=== PATIENT | male | born 1980 | race American Indian/Alaskan Native ===

== ENCOUNTER 2021-08-10 11:19 | Observation (INO) | payer SELFPAY ==
[2021-08-10] MEDS ORDERED: SODIUM CHLORIDE 0.9% 1000 ML 1,000 ML IV ONE (11:48)
[2021-08-10] MEDS ORDERED: ONDANSETRON 4 MG/2 ML INJ IV ONE (11:48)
[2021-08-10] MEDS ORDERED: MORPHINE 4 MG/1 ML INJ IV ONE (11:48)
--- NOTE | 2021-08-10 12:01 | Emergency Department Report ---
ED Abdominal Pain HPI - General Chief Complaint: Abdominal Pain Stated Complaint: ABD PAIN Time Seen by Provider: 08/10/21 11:43 Source: patient Mode of arrival: Ambulatory Limitations: No Limitations - History of Present Illness Initial Comments: Patient presents secondary to abdominal pain. He started having abdominal pain yesterday. It was periumbilical in nature. He described as an aching pain. It seemed to be constant, but it did vary in intensity. Throughout the night and into this morning, the pain migrated to the right lower abdomen. He states that the pain is still persistent. It is still aching. He has no flank pain. There has been nausea but no vomiting. He has had no fever that he can tell. He has had no dysuria frequency. There is no history of recent travel or trauma. Never had pain like this before. He has never had surgery on his abdomen. - Related Data Allergies Allergy/AdvReac Type Severity Reaction Status Date / Time No Known Allergies Allergy Verified 08/10/21 11:28 ED Review of Systems ROS: Stated complaint: ABD PAIN Other details as noted in HPI Comment: All other systems reviewed and negative Constitutional: denies: fever Eyes: denies: eye pain ENT: denies: throat pain Respiratory: denies: cough Cardiovascular: denies: chest pain Endocrine: denies: unexplained weight loss Gastrointestinal: as per HPI Genitourinary: denies: dysuria Musculoskeletal: denies: back pain Skin: denies: rash Neurological: denies: headache Hematological/Lymphatic: denies: easy bruising ED Past Medical Hx - Past Medical History Previous Medical History?: Yes Hx Hypertension: Yes - Surgical History Past Surgical History?: No - Family History Family history: hypertension ED Physical Exam - General Limitations: No Limitations, Other (Pulse ox noted and normal) General appearance: alert, in no apparent distress - Head Head exam: Present: atraumatic, normocephalic - Eye Eye exam: Present: normal appearance, EOMI. Absent: scleral icterus - ENT ENT exam: Present: normal orophraynx, normal external ear exam - Neck Neck exam: Present: normal inspection. Absent: meningismus - Respiratory Respiratory exam: Present: normal lung sounds bilaterally. Absent: respiratory distress - Cardiovascular Cardiovascular Exam: Present: regular rate, normal rhythm - GI/Abdominal GI/Abdominal exam: Present: soft, tenderness (Right lower quadrant). Absent: distended, guarding, rebound - Extremities Exam Extremities exam: Present: normal capillary refill. Absent: calf tenderness - Back Exam Back exam: Absent: CVA tenderness (R), CVA tenderness (L) - Neurological Exam Neurological exam: Present: alert, oriented X3, CN II-XII intact, normal gait. Absent: motor sensory deficit - Psychiatric Psychiatric exam: Present: normal affect, normal mood - Skin Skin exam: Present: warm, dry ED Course Vital Signs 08/10/21 11:24 Temperature 98.1 F Pulse Rate 87 Respiratory 16 Rate Blood Pressure 146/97 O2 Sat by Pulse 98 Oximetry - Reevaluation(s) Reevaluation #1: 08/10/21 14:49 Labs have been noted. CT was now noted. Surgery was paged. We will proceed with admission. ED Medical Decision Making - Lab Data Result diagrams: 08/10/21 12:23 08/10/21 12:23 - Medical Decision Making Patient presented with migratory abdominal pain to the right lower quadrant. He had some voluntary guarding. He does have acute appendicitis on CT. There is no abscess. There is no perforation. There is no tumor or mass noted. I do not believe this represents ureteral colic. Surgery has been notified for the admission. Critical Care Time: No Critical care attestation.: If time is entered above; I have spent that time in minutes in the direct care of this critically ill patient, excluding procedure time. ED Disposition Clinical Impression: Right lower quadrant pain Acute appendicitis Qualifiers: Acute appendicitis type: with localized peritonitis Appendicitis gangrene presence: without gangrene Appendicitis perforation presence: without perforation Appendicitis abscess presence: without abscess Qualified Code(s): K35.30 - Acute appendicitis with localized peritonitis, without perforation or gangrene Disposition: 09 ADMITTED INPATIENT Is pt being admited?: Yes Condition: Stable Referrals: PRIMARY CARE, [Primary Care Provider] - 3-5 Days
[2021-08-10 13:21] LABS: Basophils % (Auto) 0.3 % (0.0-1.8); Eosinophils % (Auto) 0.5 % (0.0-4.3); Hematocrit 42.9 % (35.5-45.6); Hemoglobin 14.2 gm/dl (11.8-15.2); Lymphocytes # (Auto) 1.8 K/mm3 (1.2-5.4); Lymphocytes % (Auto) 19.4 % (13.4-35.0); Mean Corpuscular HGB Conc 33 % (32-34); Mean Corpuscular Volume 74 fl (84-94); Monocytes # (Auto) 0.7 K/mm3 (0.0-0.8); Monocytes % (Auto) 7.9 % (0.0-7.3); Platelet Count 168 K/mm3 (140-440); Red Blood Count 5.82 M/mm3 (3.65-5.03); Red Cell Distribution Width 13.9 % (13.2-15.2)
[2021-08-10 13:29] LABS: BUN/Creatinine Ratio 9; Blood Urea Nitrogen 13 mg/dL (9-20); Calcium 9.1 mg/dL (8.4-10.2)
[2021-08-10 13:30] LABS: Hemolysis Index 6
--- NOTE | 2021-08-10 14:41 | Cat Scan Report ---
CT ABDOMEN AND PELVIS WITH CONTRAST INDICATION / CLINICAL INFORMATION: rlq pain. TECHNIQUE: Axial CT images were obtained through the abdomen and pelvis after Omnipaque 300, 100 cc I V contrast. All CT scans at this location are performed using CT dose reduction for ALARA by means o f automated exposure control. COMPARISON: None available. FINDINGS: LOWER CHEST: No significant abnormality. LIVER: No significant abnormality. GALLBLADDER: No significant abnormality. BILE DUCTS: No significant abnormality. PANCREAS: No significant abnormality. SPLEEN: No significant abnormality. ADRENALS: No significant abnormality. RIGHT KIDNEY / URETER: No significant abnormality. LEFT KIDNEY / URETER: No significant abnormality. STOMACH / SMALL BOWEL: No significant abnormality. COLON: No significant abnormality. APPENDIX: The appendix with adjacent inflammation. There is also mild secondary inflammation of the a djacent soft tissues and bowel. PERITONEUM: No free fluid. No free air. No fluid collection. LYMPH NODES: No significant adenopathy. VASCULAR STRUCTURES: No significant abnormality. URINARY BLADDER: No significant abnormality. REPRODUCTIVE ORGANS: No significant abnormality. ADDITIONAL FINDINGS: None. SKELETAL SYSTEM: No significant abnormality. IMPRESSION: 1. Acute appendicitis with adjacent inflammation. 2. Negative for visualized free perforation or abscess. Signer Name: Hector Messina MD Signed: 08/10/2021 2:33 PM Workstation Name: [email or web address]
[2021-08-10] MEDS ORDERED: PIPERACIL/TAZOBACTA 4.5/NS 100 4.5 GM/100 ML VIAL IV ONE (15:39)
--- NOTE | 2021-08-10 16:11 | Consultation ---
History of Present Illness Consult date: 08/10/21 Reason for consult: abdominal pain Chief complaint: abd pain - History of present illness History of present illness: 41-year-old male with past medical history of hypertension who presents to the emergency room with complaints of abdominal pain that started 2 days ago. The patient states that the abdominal pain was periumbilical and then radiated to the right lower quadrant. The pain is sharp and has slowly increased in intensity over the last 2 days. He has never had pain like this before. He admits to subjective fever on Tuesday. No nausea or vomiting, diarrhea. No alleviating or exacerbating factors. Past History Past Medical History: hypertension Past Surgical History: No surgical history Social history: no significant social history Family history: no significant family history Medications and Allergies Allergies Allergy/AdvReac Type Severity Reaction Status Date / Time No Known Allergies Allergy Verified 08/10/21 11:28 Review of Systems All systems: negative (10 point ROS performed and negative except for that listed in HPI) Exam Vital Signs Temp Pulse Resp BP Pulse Ox 98.1 F 87 16 146/97 98 08/10/21 11:24 08/10/21 11:24 08/10/21 11:24 08/10/21 11:24 08/10/21 11:24 Narrative exam: Gen.: Awake, alert, oriented x3. No apparent distress ENT: Trachea midline. No lymphadenopathy. No scleral icterus or conjunctival pallor CV: S1, S2 present Respiratory: No audible wheezes Abdomen: Soft, nondistended, point tenderness to palpation in the right lower quadrant. No rebound, rigidity, guarding Extremities: No clubbing, cyanosis, edema Results - Labs 08/10/21 12:23 08/10/21 12:23 Abnormal lab results 08/10/21 08/10/21 Range/Units 12:23 12:23 RBC 5.82 H (3.65-5.03) M/mm3 MCV 74 L (84-94) fl MCH 25 L (28-32) pg [place] % (Auto) 7.9 H (0.0-7.3) % Seg Neutrophils % 71.9 H (40.0-70.0) % Creatinine 1.4 H (0.8-1.3) mg/dL Glucose 109 H (75-100) mg/dL Diabetes panel 08/10/21 Range/Units 12:23 Sodium 140 (137-145) mmol/L Potassium 4.1 (3.6-5.0) mmol/L Chloride 101.2 (98-107) mmol/L Carbon Dioxide 27 (22-30) mmol/L BUN 13 (9-20) mg/dL Creatinine 1.4 H (0.8-1.3) mg/dL Glucose 109 H (75-100) mg/dL Calcium 9.1 (8.4-10.2) mg/dL Calcium panel 08/10/21 Range/Units 12:23 Calcium 9.1 (8.4-10.2) mg/dL Pituitary panel 08/10/21 Range/Units 12:23 Sodium 140 (137-145) mmol/L Potassium 4.1 (3.6-5.0) mmol/L Chloride 101.2 (98-107) mmol/L Carbon Dioxide 27 (22-30) mmol/L BUN 13 (9-20) mg/dL Creatinine 1.4 H (0.8-1.3) mg/dL Glucose 109 H (75-100) mg/dL Calcium 9.1 (8.4-10.2) mg/dL Adrenal panel 08/10/21 Range/Units 12:23 Sodium 140 (137-145) mmol/L Potassium 4.1 (3.6-5.0) mmol/L Chloride 101.2 (98-107) mmol/L Carbon Dioxide 27 (22-30) mmol/L BUN 13 (9-20) mg/dL Creatinine 1.4 H (0.8-1.3) mg/dL Glucose 109 H (75-100) mg/dL Calcium 9.1 (8.4-10.2) mg/dL - Imaging CT scan - abdomen: report reviewed, image reviewed CT scan - pelvis: report reviewed, image reviewed Assessment and Plan 41-year-old male with acute appendicitis Plan: 1. NPO 2. IVF 3. IV abx - zosyn 4. GI and DVT ppx 5. prn pain and nausea control 6. Recommend appendectomy -I discussed all risks, benefits, alternatives to surgery with the patient and questions answered. Consent obtained. Added to OR for today. Patient's Luigi is NOK/emergency contact @[phone]. Thank you for this consultation. Please call with any questions or concerns. Evaluation and treatment of this patient was during the time of the national and state emergency arising from COVID19 coronavirus pandemic. Treatment and procedures performed meet the current and available best practice and guidelines for patient during the COVID pandemic.
[2021-08-10] MEDS ORDERED: HYDROmorphone 1 MG/1 ML INJ IV PRN ×2 (16:14→17:03)
[2021-08-10] MEDS ORDERED: MORPHINE 2 MG/1 ML INJ IV PRN (16:14)
[2021-08-10] MEDS ORDERED: ONDANSETRON 4 MG/2 ML INJ IV PRN (16:14)
[2021-08-10] MEDS ORDERED: ALBUTEROL 2.5 MG/3 ML NEBU IH PRN (16:14)
[2021-08-10] MEDS ORDERED: ACETAMINOPHEN 325 MG TAB PO PRN (16:14)
--- NOTE | 2021-08-10 16:18 | History and Physical Report ---
History of Present Illness Chief complaint: My stomach hurts History of present illness: 41 YO Male with Obesity, HTN, Metabolic Syndrome presents ED for evaluation. Patient reports "my stomach hurts". Patient states that he has experienced abdominal pain over the past 1 day with persistent symptoms over the same ti meframe. Patient states that pain is 6/10, constant, achy in nature, initially localized to the right lower abdomen but has since migrated to involve the entire lower abdomen, associated with nausea. Patient transported to [facility] via private vehicle for further care and evaluation of the aforementioned symptoms. The patient was seen and evaluated in the emergency department. All lab and imaging studies reviewed. Patient with CT scan of the abdomen and pelvis and was found to have evidence of acute appendicitis. Surgical team consulted in ED. patient placed in observation status and admitted to medical floor. Patient has fever, chills, chest pain, palpitation or productive cough, skin rash, recent contact, known exposure to COVID-19. No prior admission for review. No medication listed at time of admission for reconciliation. Past History Past Medical History: hypertension Past Surgical History: No surgical history Social history: no significant social history Family history: no significant family history Medications and Allergies Allergies Allergy/AdvReac Type Severity Reaction Status Date / Time No Known Allergies Allergy Verified 08/10/21 11:28 Home Medications Medication Instructions Recorded Confirmed Last Taken Type HYDROcodone/APAP 5-325 [[place] 1 each PO Q6H PRN #15 tablet 08/10/21 Unknown Rx 5-325 mg TAB] Active Meds: Active Medications Acetaminophen (Acetaminophen 325 Mg Tab) 650 mg PO Q4H PRN PRN Reason: Pain MILD(1-3)/Fever >100.5/DARLING Albuterol (Albuterol 2.5 Mg/3 Ml Nebu) 2.5 mg IH Q4HRT PRN PRN Reason: Shortness Of Breath Hydromorphone HCl (Hydromorphone 1 Mg/1 Ml Inj) 0.5 mg IV Q8H PRN PRN Reason: Pain , Severe (7-10) Morphine Sulfate (Morphine 2 Mg/1 Ml Inj) 2 mg IV Q4H PRN PRN Reason: Pain, Moderate (4-6) Ondansetron HCl (Ondansetron 4 Mg/2 Ml Inj) 4 mg IV Q8H PRN PRN Reason: Nausea And Vomiting Sodium Chloride (Sodium Chloride 0.9% 10 Ml Flush Syringe) 10 ml IV BID ADAMARIS Sodium Chloride (Sodium Chloride 0.9% 10 Ml Flush Syringe) 10 ml IV PRN PRN PRN Reason: LINE FLUSH Review of Systems Constitutional: no weight loss, no weight gain, no fever, no chills Ears, nose, mouth and throat: no ear pain, no ear discharge, no decreased hearing, no nose pain, no nasal congestion Cardiovascular: no chest pain, no orthopnea, no palpitations, no edema Respiratory: no cough, no shortness of breath Gastrointestinal: abdominal pain, nausea, no vomiting, no diarrhea, no constipation, no BRBPR, no melena Genitourinary Male: no hematuria, no flank pain, no discharge, no urinary frequency, no urinary hesitancy Rectal: no pain, no incontinence, no bleeding Musculoskeletal: no neck stiffness, no neck pain, no shooting arm pain, no low back pain Integumentary: no rash, no pruritis, no sores Neurological: no head injury, no paralysis, no numbness, no tingling, no seizures, no tremors Psychiatric: no anxiety, no memory loss, no insomnia, no hypersomnia, no change in appetite, no change in libido Endocrine: no cold intolerance, no heat intolerance, no excessive thirst, no polydipsia, no excessive sweating Hematologic/Lymphatic: no easy bruising, no easy bleeding Allergic/Immunologic: no urticaria, no wheezing Exam - Constitutional Vitals: Temp Pulse Resp BP Pulse Ox 98.1 F 87 16 146/97 98 08/10/21 11:24 08/10/21 11:24 08/10/21 11:24 08/10/21 11:24 08/10/21 11:24 General appearance: Present: mild distress - EENT Eyes: Present: PERRL ENT: hearing intact, clear oral mucosa - Neck Neck: Present: supple, normal ROM - Respiratory Respiratory effort: normal Respiratory: bilateral: CTA - Cardiovascular Heart Sounds: Present: S1 & S2. Absent: rub, click - Extremities Extremities: pulses symmetrical, No edema Peripheral Pulses: within normal limits - Abdominal General gastrointestinal: Present: soft, tender, non-distended, normal bowel sounds Localized gastrointestinal: tender: RLQ Male genitourinary: Present: normal - Integumentary Integumentary: Present: clear, warm, dry - Musculoskeletal Musculoskeletal: gait normal, strength equal bilaterally - Psychiatric Psychiatric: appropriate mood/affect, intact judgment & insight - Neurologic Neurologic: CNII-XII intact, moves all extremities Results - Labs CBC & Chem 7: 08/10/21 12:23 08/10/21 12:23 Labs: Abnormal lab results 08/10/21 08/10/21 Range/Units 12:23 12:23 RBC 5.82 H (3.65-5.03) M/mm3 MCV 74 L (84-94) fl MCH 25 L (28-32) pg [place] % (Auto) 7.9 H (0.0-7.3) % Seg Neutrophils % 71.9 H (40.0-70.0) % Creatinine 1.4 H (0.8-1.3) mg/dL Glucose 109 H (75-100) mg/dL Assessment and Plan - Patient Problems (1) Acute appendicitis Current Visit: Yes Status: Acute Qualifiers: Acute appendicitis type: with localized peritonitis Appendicitis gangrene presence: without gangrene Appendicitis perforation presence: without perforation Appendicitis abscess presence: without abscess Qualified Code(s): K35.30 - Acute appendicitis with localized peritonitis, without perforation or gangrene Plan to address problem: CT scan abdomen and pelvis, serial abdominal exam, surgery team consulted in ED. Patient pending surgical intervention. IV fluid resuscitation therapy, bowel rest, pain control. (2) Obesity (BMI 30.0-34.9) Current Visit: Yes Status: Acute Plan to address problem: Balanced diet, increase physical activity at discharge. (3) Hypertension Current Visit: Yes Status: Acute Qualifiers: Hypertension type: primary hypertension Qualified Code(s): I10 - Essential (primary) hypertension Plan to address problem: Monitor blood pressure every shift. (4) DVT prophylaxis Current Visit: Yes Status: Acute Plan to address problem: SCD to bilateral lower extremities while in bed
[2021-08-10] MEDS ORDERED: SODIUM CHLORIDE 0.9% 1000 ML 1,000 ML IV SCH (16:30)
[2021-08-10] MEDS ORDERED: ROCURONIUM 50 MG/5 ML INJ IV ONE (16:44)
[2021-08-10] MEDS ORDERED: SUCCINYLCHOLINE CHLORIDE 200 MG/10 ML INJ MDV ONE (16:44)
[2021-08-10] MEDS ORDERED: fentaNYL 100 MCG/2 ML INJ ONE (16:44)
[2021-08-10] MEDS ORDERED: LIDOCAINE MPF (2%) 20 MG/1 ML VIAL 5 ML ONE (16:44)
[2021-08-10] MEDS ORDERED: propofoL 200 MG/20 ML VIAL IV ONE (16:44)
[2021-08-10] MEDS ORDERED: MIDAZOLAM 2 MG/2 ML INJ ONE (16:47)
[2021-08-10] MEDS ORDERED: LIDOCAINE (1%) 10 MG/1 ML VIAL 20 ML MDV ONE (16:47)
[2021-08-10] MEDS ORDERED: BUPIVACAINE/PF (0.5%) 5 MG/1 ML 30 ML VIAL INFILTRATI ONE ×2 (16:48→17:42)
--- NOTE | 2021-08-10 17:00 | Anesthesia Consultation ---
Anesthesia Consult and Med Hx Date of service: 08/10/21 - Airway Anesthetic Teeth Evaluation: Good ROM Head & Neck: Adequate Mental/Hyoid Distance: Adequate Mallampati Class: Class III Intubation Access Assessment: Possibly Difficult - Pre-Operative Health Status ASA Pre-Surgery Classification: ASA2 Proposed Anesthetic Plan: General - Pulmonary Hx Smoking: No Hx Respiratory Symptoms: No - Cardiovascular System Hx Hypertension: Yes (took antihypertensives this morning) Hx Heart Attack/AMI: No Hx Percutaneous Transluminal Coronary Angioplasty (PTCA): No - Central Nervous System CVA: No - Endocrine Hx Renal Disease: Yes (MU) Hx Liver Disease: No Hx Insulin Dependent Diabetes: No Hx Non-Insulin Dependent Diabetes: No Hx Thyroid Disease: No - Hematic Hx Anemia: No - Additional Comments Anesthesia Medical History Comments: No prior GA or known FHx anesthetic complications. Presented with acute appendicitis now scheduled for lap appendectomy. 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 Plan GETA w/ stnd ASA monitors.
--- NOTE | 2021-08-10 17:00 | Anesthesia Day of Surgery ---
Anesthesia Day of Surgery - Day of Surgery Patient Examined: Yes Patient H&P Reviewed: Yes Patient is NPO: Yes Beta Blockers: Yes (took home dose metoprolol this morning)
[2021-08-10] MEDS ORDERED: ceFAZolin 1 GM VIAL ONE ×2 (17:22)
[2021-08-10] MEDS ORDERED: SODIUM CHLORIDE 0.9% IRR 1,500 ML BOTTLE IR ONE (17:43)
[2021-08-10] MEDS ORDERED: LIDOCAINE (1%) 10 MG/1 ML VIAL 20 ML MDV INFILTRATI ONE (17:43)
[2021-08-10] MEDS ORDERED: GLYCOPYRROLATE 0.4 MG/2 ML INJ ONE ×2 (17:56)
[2021-08-10] MEDS ORDERED: NEOSTIGMINE 10MG/10 ML INJ MDV ONE (17:56)
[2021-08-10] MEDS ORDERED: HYDROcodone/ACETAMINOPHEN 5-325 MG TAB PO PRN (18:06)
--- NOTE | 2021-08-10 18:07 | Operative Report ---
Operative Report Operative Report: Date of operation: 08/10/21 Preoperative diagnosis: acute appendicitis Postoperative diagnosis: same as above Procedure performed: Laparoscopic appendectomy Surgeon: Hugo Franco DO [employer] Driver: Zack Rosado MD Anesthesia: GETA, local Findings: Dilated, thickened, inflamed appendix. Not perforated EBL:<5c Specimen: appendix Disposition/Condition: stable to PACU HPI and indication: 41 yo m who presented to ER with RLQ pain x 2 days. He was found to have acute appendicitis on CT scan. Appendectomy was recommended. All risks, benefits, alternatives to surgery were discussed with the patient questions answered. Consent was obtained. Procedure in detail: Patient was identified in the preop area and taken back to the OR and placed on the OR table in supine position. After anesthesia was induced a scuhlte catheter was steriley placed by the circulating nurse. The left arm was tucked and all bony prominences padded appropriately. the abdomen was prepped and draped in the usual sterile fashion and a timeout performed. Local anesthetic was infilitrated into all skin incision sites. A supraumbilical incision was made and veress needle inserted. The positioning of the veress needle was confirmed using the saline drop test and the abdomen insufflated to 15 mmHg without incident. A 5mm Optiview trocar was placed through the supraumbilical incision. The abdomen was inspected and no underlying injury to the abdominal structures was identified. The patient was placed in Trendelenburg and tilted to the left. The appendix was identified. A 12 mm LLQ trocar and 5 mm suprapubic trocar were placed under direct visualization. The appendix was noted to be dilated, inflamed with induration of the mesentery. Fibrinous adhesions from the appendix and mesoappendix were blunty dissected. The mesentery of the appendix was ligated using the harmonic scalpel. The base of the appendix was transected using an ethicon flex stapler 45mm white load. The appendix was placed into an endocatch bag and removed via the 12 mm port. This was passed off the table as specimen. The staple line and mesentery were then inspected and no bleeding visualized. The staple line was complete and intact. The patient was placed in neutral position. The RLQ was irrigated with saline and irrigant returned clear. The 12 mm port fascia was closed with a single interrupted 0 vicryl stitch using the Danny Pierce device. The remaining ports were removed under direct visualization and the abdomen desufflated. All skin incisions were closed using 4-0 monocryl subcuticular stitches and skin glue. Local anesthetic was once again infiltrated into all skin incision sites. At the end of the case, all sponge, instrument, sharp counts were correct x2. The patient was awoken from anesthesia, schulte catheter removed, and she was taken to PACU in stable condition.
--- NOTE | 2021-08-10 19:23 | Post Anesthesia Evaluation ---
- Post Anesthesia Evaluation Patient Participated: Yes Airway Patent: Yes Stable Respiratory Function: Yes Nausea/Vomiting: No Temp > 96.8F: Yes Pain Manageable: Yes Adequeate Hydration: Yes Anesthesia Complications: No
[2021-08-11 07:55] LABS: Basophils # (Auto) 0.1 K/mm3 (0.0-0.1); Basophils % (Auto) 0.5 % (0.0-1.8); Hematocrit 42.8 % (35.5-45.6); Hemoglobin 14.2 gm/dl (11.8-15.2); Lymphocytes # (Auto) 0.9 K/mm3 (1.2-5.4); Lymphocytes % (Auto) 8.2 % (13.4-35.0); Mean Corpuscular HGB Conc 33 % (32-34); Mean Corpuscular Volume 74 fl (84-94); Monocytes # (Auto) 0.4 K/mm3 (0.0-0.8); Monocytes % (Auto) 3.3 % (0.0-7.3); Platelet Count 173 K/mm3 (140-440); Red Blood Count 5.77 M/mm3 (3.65-5.03); Red Cell Distribution Width 13.8 % (13.2-15.2)
[2021-08-11 08:15] LABS: BUN/Creatinine Ratio 13; Blood Urea Nitrogen 13 mg/dL (9-20); Calcium 8.8 mg/dL (8.4-10.2); Hemolysis Index 4
--- NOTE | 2021-08-11 13:12 | Discharge Summary ---
Providers - Providers Date of Admission: 08/10/21 16:14 Date of discharge: 08/11/21 Attending physician: DARIUS WORLEY Primary care physician: CAMP ASSISTANT Hospitalization Condition: Stable Disposition: 01 HOME / SELF CARE / HOMELESS Time spent for discharge: 34 minutes Core Measure Documentation - Palliative Care Palliative Care/ Comfort Measures: Not Applicable - Core Measures Any of the following diagnoses?: none Exam - Constitutional Vitals: Temp Pulse Resp BP Pulse Ox 97.8 F 67 20 126/77 100 08/11/21 04:56 08/11/21 04:56 08/11/21 04:56 08/11/21 04:56 08/11/21 04:56 Plan Activity: advance as tolerated Weight Bearing Status: Weight Bear as Tolerated Diet: advance as tolerated Follow up with: MARY JUNIOR DO [Staff Physician] - 14 Days PRIMARY CARE, [Primary Care Provider] - 3-5 Days Prescriptions: Ciprofloxacin HCl [Ciprofloxacin TAB] 250 mg PO BID #10 HYDROcodone/APAP 5-325 [[place] 5-325 mg TAB] 1 each PO Q6H PRN #15 tablet PRN Reason: Pain, Moderate (4-6)
--- NOTE | 2021-08-11 14:08 | Post Anesthesia Evaluation ---
- Post Anesthesia Evaluation Patient Participated: Yes Airway Patent: Yes Stable Respiratory Function: Yes Nausea/Vomiting: No Temp > 96.8F: Yes Pain Manageable: Yes Adequeate Hydration: Yes Anesthesia Complications: No Block Receding Appropriately: Not Applicable Patient on Ventilator: No Other Comments: being discharged home by the provider
[2021-08-11 15:00] VITALS: BP 132/73
== END 2021-08-11 15:39 | disposition home or self-care (01) ==
LOC: ED 11:19 → 3A 16:14
PROVIDERS: ADMIT Internal Medicine; ATTEND Internal Medicine
DX: K35.30 Acute appendicitis with localized peritonitis, without perforation or gangrene (principal); I10 Essential (primary) hypertension; E66.9 Obesity, unspecified; Z68.30 Body mass index [BMI] 30.0-30.9, adult; Z79.899 Other long term (current) drug therapy; Z98.890 Other specified postprocedural states
CPT/HCPCS: 36415; 44970; 74177; 80048; 85025; 88304; 96374; 96375; 99285; G0378; J0330; J0690; J1815; J2250; J2270; J2405; J2704; J2710; J3010; J3490; J7030; Q9967; J7120; Q0162